=== PATIENT | female | born 1995 | race Caucasian/White ===

== ENCOUNTER 2019-07-25 16:30 | Emergency (ER) | payer OTHER, SELFPAY ==
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
[2019-07-25 17:02] VITALS: BP 123/95; PULSE 120; RESP 18; TEMP 37; O2SAT 100
--- NOTE | 2019-07-25 17:51 | PC.NURSE ---
Wanda from [facility] at the bedside at this time.
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
[2019-07-25] MEDS: AZITHROMYCIN 250 MG TABLET 1000 MG PO (22:02)
[2019-07-25] MEDS: ONDANSETRON HCL ODT 4 MG TABLET PO (22:02)
[2019-07-25] MEDS: ULIPRISTAL ACETATE 30 MG TABLET PO (22:03)
[2019-07-25] MEDS: metroNIDAZOLE 250 MG TABLET 2000 MG PO (22:03)
--- NOTE | 2019-07-25 22:03 | PC.NURSE ---
Spoke with [employer] Facility Supervisor White with [facility] Dept. Case# [id number] assigned.
[2019-07-25] MEDS: PROCHLORPERAZINE MALEATE 5 MG TABLET PO (23:20)
[2019-07-25 23:30] LABS: HIV 1/2 Ab P24 Ag Result Negative (Negative)
[2019-07-25 23:44] VITALS: BP 121/90; PULSE 101; RESP 16; TEMP 36.6; O2SAT 100
--- NOTE | 2019-07-25 23:50 | PC.NURSE ---
[facility] report number [id number] a report number from [facility] was put on kit.
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
== END 2019-07-25 23:45 | disposition home or self-care (01) ==
LOC: ANHED 22:39
PROVIDERS: Physician Assistant; Emergency Provider Emergency Medicine; PCP Nurse Practitioner Adult Health
DX: T74.21XA Adult sexual abuse, confirmed, initial encounter (principal); M54.2 Cervicalgia; Y07.9 Unspecified perpetrator of maltreatment and neglect
CPT/HCPCS: 36415; 70450; 72125; 86703; 96372; 99285; A9270; G0432; J1580